=== PATIENT | female | born 1960 | race Native Hawaiian/Other Pacific Islander ===

== ENCOUNTER 2018-02-22 08:02 | Day surgery (SDC) | payer BC ==
[2018-02-17 12:58] VITALS: BMI 20.5
[2018-02-22] MEDS ORDERED: Propofol 10 mg/ml Inj (20 ML) ONE (09:09)
[2018-02-22] MEDS ORDERED: Lactated Ringer's 1,000 ML IV ONE (09:09)
[2018-02-22 11:03] VITALS: TEMP 98
[2018-02-22 11:04] VITALS: PULSE 52; O2SAT 99
[2018-02-22 11:10] VITALS: BP 110/68; RESP 58
== END 2018-02-22 11:00 | disposition home or self-care (01) ==
LOC: C.ENDO 08:02
PROVIDERS: ATTEND Internal Medicine Gastroenterology
DX: Z12.11 Encounter for screening for malignant neoplasm of colon (principal); K64.1 Second degree hemorrhoids; Z85.3 Personal history of malignant neoplasm of breast; F41.9 Anxiety disorder, unspecified; Z80.0 Family history of malignant neoplasm of digestive organs; Z80.41 Family history of malignant neoplasm of ovary
CPT/HCPCS: 45378; J2704; J7120